=== PATIENT | female | born 1950 | race Caucasian/White ===

== ENCOUNTER 2016-11-17 14:12 | Emergency (ER) | payer OTHER, BC ==
[~2016-11-17 14:12] MED LIST: ALEVE220 M2 PO; BENICAR HCT 40-1 TAB PO; FLEXERIL10 MG PO; GABAPENTIN400 MG PO; METOPROLOL TART25 MG PO; NORCO 5/325 TAB1 TAB PO; NORCO 7.5/325 T1 TAB PO; NORTRIPTYLINE H50 MG PO; SENOKOT-S TABLE1 TAB PO; SIMVASTATIN20 MG PO
[2016-11-17] MEDS ORDERED: COZAAR50 M1 PO (14:25)
[2016-11-17] MEDS ORDERED: LASIX20 M1 PO (14:25)
[2016-11-17] MEDS ORDERED: MOBIC7.5 M2 PO (14:25)
[2016-11-17] MEDS ORDERED: CYMBALTA30 M1 PO (14:26)
[2016-11-17] MEDS ORDERED: TOPROL XL25 M1 PO (14:26)
[2016-11-17] MEDS ORDERED: NORCO 5-325 TA1 EACH PO (16:01)
== END 2016-11-17 16:20 ==
LOC: EDMED 14:12
PROC: 2W3RX1Z Immobilization of Left Lower Leg using Splint (ICD-10-PCS; principal; 2016-11-17)
PROC: 2W3CXYZ Immobilization of Right Lower Arm using Other Device (ICD-10-PCS; 2016-11-17)
DX: S82.002A Unspecified fracture of left patella, initial encounter for closed fracture (principal); S66.911A Strain of unspecified muscle, fascia and tendon at wrist and hand level, right hand, initial encounter; M54.9 Dorsalgia, unspecified; G89.29 Other chronic pain; W18.40XA Slipping, tripping and stumbling without falling, unspecified, initial encounter; Y92.69 Other specified industrial and construction area as the place of occurrence of the external cause; Y99.0 Civilian activity done for income or pay